=== PATIENT | female | born 1965 | race Caucasian/White ===

== ENCOUNTER 2023-07-01 07:24 | Day surgery (SDC) | payer OTHER ==
[~2023-07-01] VITALS: Ht 152.4 cm; Wt 59.0 kg
[2023-07-01] MEDS ORDERED: diphenhydrAMINE 50 MG/ML VIAL ONE (07:37)
[2023-07-01] MEDS ORDERED: fentaNYL citrate 0.05 MG/ML VIAL ONE (07:37)
[2023-07-01] MEDS ORDERED: MIDAZOLAM 5 MG/5 ML VIAL ONE (07:38)
[2023-07-01] MEDS ORDERED: fentaNYL citrate 0.05 MG/ML VIAL IVP ONE (08:45)
[2023-07-01] MEDS ORDERED: MIDAZOLAM 5 MG/5 ML VIAL IV ONE (08:45)
== END 2023-07-01 10:00 | disposition home or self-care (01) ==
LOC: MDS 07:24 → MMU 07:26 → MDS 10:00
PROVIDERS: ATTEND Internal Medicine Gastroenterology
DX: R10.13 Epigastric pain (principal); K29.50 Unspecified chronic gastritis without bleeding; I10 Essential (primary) hypertension; E11.9 Type 2 diabetes mellitus without complications; Z90.49 Acquired absence of other specified parts of digestive tract; Z79.899 Other long term (current) drug therapy
CPT/HCPCS: 43239; 82948; J2250; J3010; J1200